=== PATIENT | male | born 1960 | race Caucasian/White ===

== ENCOUNTER 2019-05-26 09:50 | Observation (INO) ==
[2019-05-26] MEDS ORDERED: Acetaminophen IV 1,000 MG/100 ML INFUS..BTL IVPB ONE (09:59)
[2019-05-26] MEDS ORDERED: Famotidine 20 MG/2 ML VIAL IVP ONE (09:59)
[2019-05-26] MEDS ORDERED: Pregabalin 75 MG CAPSULE PO ONE (09:59)
[2019-05-26] MEDS ORDERED: *HR* FentaNYL (PF) 100 MCG/2 ML VIAL ONE ×2 (10:08→11:42)
[2019-05-26] MEDS ORDERED: Propofol 500 MG/50 ML INFUS..BTL ONE ×2 (10:08→12:45)
[2019-05-26] MEDS ORDERED: *HR* Midazolam HCl 2 MG/2 ML VIAL ONE (10:08)
[2019-05-26] MEDS ORDERED: *HR* Propofol 200 MG/20 ML VIAL IVP ONE (10:08)
[2019-05-26] MEDS ORDERED: Lidocaine -MPF 2% 2 ML VIAL ONE (10:09)
[2019-05-26] MEDS ORDERED: Dexamethasone 4 MG/ML VIAL ONE ×2 (10:09→11:02)
[2019-05-26] MEDS ORDERED: Ondansetron 4 MG/2 ML VIAL ONE (10:09)
[2019-05-26] MEDS ORDERED: Tranexamic Acid 1,000 MG/10 ML VIAL ONE (10:10)
[2019-05-26] MEDS: Ringers Solution, Lactated 1,000 ML IVC SCH ×2 (10:20→12:11)
[2019-05-26] MEDS ORDERED: CeFAZolin Syr 2,000MG/20 ML 2,000 MG/20 ML SYRINGE IVPB ONE (10:22)
[2019-05-26] MEDS ORDERED: *HR* PHENYLEPHRINE 1,000 MCG/10 ML SYRINGE IVP ONE (10:31)
[2019-05-26] MEDS ORDERED: *HR* Promethazine 25 MG/ML VIAL IVP PRN (10:41)
[2019-05-26] MEDS ORDERED: *HR* Labetalol 20 MG/4 ML SYRINGE IVP PRN (10:41)
[2019-05-26] MEDS ORDERED: Ropivacaine/PF 0.5% 30 ML VIAL ONE (11:00)
[2019-05-26] MEDS ORDERED: Ethanol\\Acetic Acid\\Na Ace\\Ben 1,000 ML IRRIG.SOLN IR ONE (11:12)
[2019-05-26] MEDS ORDERED: EPINEPHrine 1 MG/ML VIAL ONE (11:23)
[2019-05-26] MEDS ORDERED: Total Joint Mixture (50 ml) IR ONE (11:45)
[2019-05-26] MEDS: Morphine Sulfate 2 MG/ML SYRINGE IVP PRN ×3 (14:20→14:45)
[2019-05-26] MEDS: *HR* OxyCODONE Immed Rel 5 MG TABLET PO PRN ×4 (14:23→20:50)
[2019-05-26 14:34] LABS: Hematocrit 38.9 % (37.5-50.1); Hemoglobin 12.7 g/dL (12.9-16.9)
[2019-05-26] MEDS ORDERED: NON-FORMULARY MEDICATION 1 EACH EACH (Omega-3/Dha/Epa/Fish Oil [Fish Oil 1,000 Mg Softgel] PO SCH (15:10)
[2019-05-26] MEDS ORDERED: Naloxone 0.4 MG/ML INJ IVP PRN (15:10)
[2019-05-26] MEDS ORDERED: [UNRECOGNIZED DRUG - OTHER] PO SCH (15:10)
[2019-05-26] MEDS ORDERED: [UNRECOGNIZED DRUG - OTHER] PO SCH (15:10)
[2019-05-26] MEDS ORDERED: MOM Conc 10 ML UD.LIQ PO PRN (15:10)
[2019-05-26] MEDS ORDERED: ASCORBIC ACID PO SCH (15:10)
[2019-05-26] MEDS ORDERED: Ringers Solution, Lactated 1,000 ML IVC SCH (15:10)
[2019-05-26] MEDS ORDERED: ASCORBATE SODIUM PO SCH (15:10)
[2019-05-26] MEDS ORDERED: Sennosides 8.6 MG TABLET PO PRN (15:10)
[2019-05-26] MEDS ORDERED: NON-FORMULARY MEDICATION 1 EACH EACH (Ubidecarenone [Coq10] 50 MG) PO SCH (15:10)
[2019-05-26] MEDS: Ascorbic Acid 500 MG TABLET PO SCH (16:26)
[2019-05-26] MEDS: Lactobacillus 1 EACH CAP.SPRINK PO SCH (16:30)
[2019-05-26] MEDS: HYDROcodone BIT/Homatropine 5 MG TABLET PO PRN (18:40)
[2019-05-26] MEDS: carvediloL 6.25 MG TABLET PO SCH (18:40)
[2019-05-26] MEDS ORDERED: amLODIPine 5 MG TABLET PO ONE (18:58)
[2019-05-27] MEDS: Temazepam 15 MG CAPSULE PO PRN ×2 (00:07→21:39)
[2019-05-27] MEDS: HYDROcodone BIT/Homatropine 5 MG TABLET PO PRN ×2 (00:07→13:50)
[2019-05-27 02:12] LABS: Basophils % 0.1 %; Hemoglobin 11.6 g/dL (12.9-16.9); Immature Granulocytes % 0.4 % (0-4); Lymphocytes # 0.7 K/mcL (0.6-4.6); Lymphocytes % 5.1 %; Mean Corpuscular HGB Conc 34.1 g/dL (31.6-35.5); Mean Corpuscular Hemoglobin 29.8 pg (28.0-33.3); Mean Corpuscular Volume 87.4 fL (83.0-100.0); Mean Platelet Volume 9.3 fL (9.4-12.4); Monocytes # 0.4 K/mcL (0.0-1.3); Monocytes % 2.8 %; Neutrophils # 11.8 K/mcL (1.6-8.9); Platelet Count 251 K/mcL (140-400); Red Blood Count 3.89 M/mcL (4.19-5.50); Red Cell Distribution Width 12.5 % (11.5-14.5); Segmented Neutrophils % 91.6 %; White Blood Count 12.9 K/mcL (4.3-11.1)
[2019-05-27 02:32] LABS: Calcium 8.6 mg/dL (8.6-10.3); Potassium 4.4 mEq/L (3.5-5.1)
[2019-05-27] MEDS: *HR* OxyCODONE Immed Rel 5 MG TABLET PO PRN ×4 (04:13→21:38)
[2019-05-27] MEDS: Lactobacillus 1 EACH CAP.SPRINK PO SCH (08:34)
[2019-05-27] MEDS: amLODIPine 5 MG TABLET PO SCH (08:34)
[2019-05-27] MEDS: Cholecalciferol (D-3) 1,000 UNIT (25MCG) TABLET PO SCH (08:34)
[2019-05-27] MEDS: Ascorbic Acid 500 MG TABLET PO SCH ×2 (08:34→17:01)
[2019-05-27] MEDS: carvediloL 6.25 MG TABLET PO SCH ×2 (08:34→17:01)
[2019-05-27] MEDS: Multivit/Ca/Min/Fe/FA 1 TAB TABLET PO SCH (08:34)
[2019-05-27] MEDS ORDERED: MAGNESIUM CHLORIDE 143 MG PO SCH (09:00)
[2019-05-27] MEDS ORDERED: NON-FORMULARY MEDICATION 1 EACH EACH (Multivitamin [Daily Multiple Vitamin] 1 TAB) PO SCH (09:00)
[2019-05-27] MEDS: Ondansetron 4 MG/2 ML VIAL IVP PRN (09:43)
[2019-05-27] MEDS: *HR* Promethazine 25 MG/ML VIAL IVP PRN (13:50)
[2019-05-27] MEDS: *HR* Enoxaparin 30 MG/0.3 ML SYRINGE SQ SCH ×2 (17:05→18:38)
[2019-05-27] MEDS ORDERED: amLODIPine 5 MG TABLET PO ONE (18:53)
[2019-05-28] MEDS: HYDROcodone BIT/Homatropine 5 MG TABLET PO PRN (00:44)
[2019-05-28] MEDS: *HR* OxyCODONE Immed Rel 5 MG TABLET PO PRN ×5 (03:06→20:48)
[2019-05-28] MEDS: *HR* Enoxaparin 30 MG/0.3 ML SYRINGE SQ SCH ×2 (05:35→19:18)
[2019-05-28 06:54] LABS: Basophils % 0.2 %; Eosinophils % 0.3 %; Hematocrit 28.6 % (37.5-50.1); Hemoglobin 9.8 g/dL (12.9-16.9); Immature Granulocytes % 0.3 % (0-4); Lymphocytes # 2.1 K/mcL (0.6-4.6); Mean Corpuscular HGB Conc 34.3 g/dL (31.6-35.5); Mean Corpuscular Volume 87.5 fL (83.0-100.0); Mean Platelet Volume 9.2 fL (9.4-12.4); Monocytes # 1.1 K/mcL (0.0-1.3); Monocytes % 10.2 %; Neutrophils # 7.7 K/mcL (1.6-8.9); Platelet Count 207 K/mcL (140-400); Red Blood Count 3.27 M/mcL (4.19-5.50); Red Cell Distribution Width 12.9 % (11.5-14.5); White Blood Count 10.9 K/mcL (4.3-11.1)
[2019-05-28 07:01] LABS: Calcium 8.5 mg/dL (8.6-10.3); Potassium 4.3 mEq/L (3.5-5.1)
[2019-05-28] MEDS: Ascorbic Acid 500 MG TABLET PO SCH ×2 (07:56→15:21)
[2019-05-28] MEDS: amLODIPine 5 MG TABLET PO SCH (07:57)
[2019-05-28] MEDS: Cholecalciferol (D-3) 1,000 UNIT (25MCG) TABLET PO SCH (07:57)
[2019-05-28] MEDS: Lactobacillus 1 EACH CAP.SPRINK PO SCH (07:57)
[2019-05-28] MEDS: carvediloL 6.25 MG TABLET PO SCH ×2 (07:57→15:20)
[2019-05-28] MEDS: Multivit/Ca/Min/Fe/FA 1 TAB TABLET PO SCH (07:57)
[2019-05-28 12:09] LABS: Hematocrit 28.6 % (37.5-50.1); Hemoglobin 9.8 g/dL (12.9-16.9)
[2019-05-28] MEDS ORDERED: Ringers Solution, Lactated 500 ML IVC ONE (15:15)
[2019-05-28] MEDS: Ondansetron 4 MG/2 ML VIAL IVP PRN (15:21)
[2019-05-28] MEDS: *HR* Promethazine 25 MG/ML VIAL IVP PRN (20:51)
[2019-05-28] MEDS: Temazepam 15 MG CAPSULE PO PRN (21:54)
[2019-05-29] MEDS: *HR* OxyCODONE Immed Rel 5 MG TABLET PO PRN ×4 (00:42→13:14)
[2019-05-29 03:13] LABS: Hematocrit 27.7 % (37.5-50.1); Hemoglobin 9.2 g/dL (12.9-16.9); Mean Corpuscular HGB Conc 33.2 g/dL (31.6-35.5); Mean Corpuscular Hemoglobin 30.3 pg (28.0-33.3); Mean Corpuscular Volume 91.1 fL (83.0-100.0); Mean Platelet Volume 9.3 fL (9.4-12.4); Platelet Count 216 K/mcL (140-400); Red Blood Count 3.04 M/mcL (4.19-5.50); Red Cell Distribution Width 12.9 % (11.5-14.5); White Blood Count 11.1 K/mcL (4.3-11.1)
[2019-05-29 03:32] LABS: Calcium 8.5 mg/dL (8.6-10.3); Potassium 4.3 mEq/L (3.5-5.1)
[2019-05-29] MEDS: *HR* Enoxaparin 30 MG/0.3 ML SYRINGE SQ SCH (05:12)
[2019-05-29] MEDS: Ondansetron 4 MG/2 ML VIAL IVP PRN (09:01)
[2019-05-29] MEDS: Cholecalciferol (D-3) 1,000 UNIT (25MCG) TABLET PO SCH (09:04)
[2019-05-29] MEDS: Multivit/Ca/Min/Fe/FA 1 TAB TABLET PO SCH (09:04)
[2019-05-29] MEDS: carvediloL 6.25 MG TABLET PO SCH (09:04)
[2019-05-29] MEDS: Ascorbic Acid 500 MG TABLET PO SCH (09:04)
[2019-05-29] MEDS: Lactobacillus 1 EACH CAP.SPRINK PO SCH (09:15)
[2019-05-29] MEDS: HYDROcodone BIT/Homatropine 5 MG TABLET PO PRN (11:37)
[2019-05-29 12:11] VITALS: BP 110/67
== END 2019-05-29 14:30 | disposition home health service (06) ==
LOC: 3NENU 09:50 → SAMDAY 09:50 → 3NENU 15:06
PROVIDERS: ADMIT Orthopaedic Surgery; ATTEND Orthopaedic Surgery